=== PATIENT | female | born 1950 | race African-American/Black ===

== ENCOUNTER 2016-09-03 17:38 | Emergency (ER) | payer MEDICARE, BC ==
[2016-09-03 18:04] VITALS: BP 168/69
[2016-09-03] MEDS ORDERED: DIPH/PERTUSS(ACELL)/TETANUS VAC/PF 0.5 ML SYR (>=10YO) IM ONE (18:17)
--- NOTE | 2016-09-03 18:20 | ER Document Report ---
ED Hand/Wrist Injury - General Chief Complaint: Finger Injury Stated Complaint: RIGHT HAND INDEX FINGER INJURY Time Seen by Provider: 09/03/16 18:08 Information source: Patient Notes: Patient was slicing potatoes and partially avulsed the very distal tip of her right ring finger. No other trauma noted. Tetanus needs to be updated. TRAVEL OUTSIDE OF THE [place] IN LAST 30 DAYS: No - HPI Injury to: Ring finger Onset: Just prior to arrival Where: Home Timing: Constant Quality of pain: Achy Severity: Mild Pain Level: 1 Context: Other - See above - Related Data Allergies/Adverse Reactions: Penicillins Adverse Reaction (Verified 11/08/13 07:13) Past Medical History - General Information source: Patient - Social History Smoking Status: Never Smoker Chew tobacco use (# tins/day): No Frequency of alcohol use: None Drug Abuse: None Family History: Reviewed & Not Pertinent Patient has suicidal ideation: No Patient has homicidal ideation: No - Past Medical History Cardiac Medical History: Denies: Hx Coronary Artery Disease, Hx Heart Attack, Hx Hypertension Pulmonary Medical History: Denies: Hx Asthma, Hx Bronchitis, Hx COPD, Hx Pneumonia Neurological Medical History: Denies: Hx Cerebrovascular Accident, Hx Seizures Renal/ Medical History: Denies: Hx Peritoneal Dialysis Musculoskeltal Medical History: Denies Hx Arthritis Past Surgical History: Denies: Hx Hysterectomy - Immunizations Hx Diphtheria, Pertussis, Tetanus Vaccination: No Physical Exam - Vital signs Vitals: Temp Pulse Resp BP Pulse Ox 98.0 F 55 L 16 168/69 H 100 09/03/16 18:02 09/03/16 18:02 09/03/16 18:02 09/03/16 18:02 09/03/16 18:02 Notes: Reviewed vital signs and nursing note as charted by RN. CONSTITUTIONAL: Alert and oriented and responds appropriately to questions. Well -appearing; well-nourished EXT: Patient has a very superficial avulsion injury to the tip of the right ring finger. Hemostatic currently. Course - Re-evaluation Re-evalutation: 09/03/16 18:19 Given the history and physical examination with a superficial avulsion, do not believe imaging or laboratory work is necessary. We will clean and place bacitracin, up date patient's tetanus, and provide strict return precautions. - Vital Signs Vital signs: Temp Pulse Resp BP Pulse Ox 98.0 F 55 L 16 168/69 H 100 09/03/16 18:02 09/03/16 18:02 09/03/16 18:02 09/03/16 18:02 09/03/16 18:02 Discharge - Discharge Clinical Impression: Fingertip avulsion Qualifiers: Encounter type: initial encounter Qualified Code(s): S61.209A - Unspecified open wound of unspecified finger without damage to nail, initial encounter Condition: Good Disposition: HOME, SELF-CARE Additional Instructions: Come back immediately with any redness, swelling, or fever. Please keep the area clean and dry and apply bacitracin or other antibiotic ointment to the area twice daily until healed.
== END 2016-09-03 18:35 | disposition home or self-care (01) ==
LOC: ER 17:38
DX: S61.204A Unspecified open wound of right ring finger without damage to nail, initial encounter (principal); W45.8XXA Other foreign body or object entering through skin, initial encounter; Y93.G9 Activity, other involving cooking and grilling; Y92.009 Unspecified place in unspecified non-institutional (private) residence as the place of occurrence of the external cause; Z23 Encounter for immunization
CPT/HCPCS: 90471; 90715; 99283